=== PATIENT | male | born 1955 | race Caucasian/White ===

== ENCOUNTER 2025-06-03 09:52 | Emergency (ER) | payer MEDICARE, SELFPAY ==
[2025-06-03 10:09] VITALS: BP 130/89; PULSE 98; RESP 16; TEMP 36.9; O2SAT 96
--- NOTE | 2025-06-03 10:23 | ED.URI ---
HPI - URI/Sore Throat General Chief Complaint: Upper Respiratory Infection Stated Complaint: fariba, shortness of breath Time Seen by Provider: 06/03/25 10:15 Source: patient Mode of arrival: ambulatory Limitations: no limitations History of Present Illness HPI Narrative: Pranav is a 61-year-old male patient presenting to the clinic today with complaints of cough and shortness of breath. He reports he symptoms for at least 2-3 weeks now. Has been given prescription for prednisone and Tessalon Perles. He contacted his provider that he was not feeling better after taking those medications and they put him on Augmentin. States he is having various stages of productive cough-clear, green, and yellow. Denies any history of COPD but has asthma. Does not have an inhaler. He denies any fevers, chills, body aches. Related Data Home Medications ?Medication ?Instructions ?Recorded ?Confirmed ?Last Taken ?Type albuterol 90 mcg/actuation aerosol mcg inhalation 06/03/25 Unknown History inhaler amoxicillin 500 mg-potassium 1 tablet PO DAILY 06/03/25 06/03/25 Unknown History clavulanate 125 mg tablet (Augmentin) prednisone 20 mg tablet 20 mg PO DAILY 06/03/25 06/03/25 Unknown History Allergies Allergy/AdvReac Type Severity Reaction Status Date / Time No Known Allergies Allergy Verified 06/03/25 10:12 Review of Systems Review of Systems: Pertinent positives per HPI. Patient denies any fever, chills, rash, headache, visual changes, dizziness, chest pain, palpitations, nausea, vomiting, diarrhea, constipation, abdominal pain, or any urinary issues. PMFSH Comments At the time of my signature, I reviewed and agree with the nursing past medical, surgical, social, and family history. There is no relevant family history pertinent to the patient complaint. Exam Narrative: General: Well-developed, well nourished, acutely ill-appearing Head: Normocephalic, atraumatic Eyes: Pupils equally round and reactive to light bilaterally, EOM intact, sclera and conjunctive clear, no discharge, lids normal Ears: TMs intact and clear, ear canals clear, no drainage, grossly hearing normal. Nose: Nares patent, clear nasal discharge, moderate inflammation, maxillary sinus tenderness. Mouth: Oral pharynx red without lesions or masses, good dentition, MMM. Postnasal drip Neck: Supple, trachea midline, no enlargement of anterior or posterior cervical nodes, no thyroid masses or goiter palpable. Cardio: Regular rate and rhythm, s1 and s2 normal, no murmur appreciated. Resp: Clear to auscultation bilaterally, no rhonchi, rales, wheezing or rubs Course Course Level of Care: Express Care Visit Vital Signs Vital signs: Vital Signs Temperature 36.9 C 06/03/25 10:09 Pulse Rate 98 06/03/25 10:09 Respiratory Rate 16 06/03/25 10:09 Blood Pressure 130/89 06/03/25 10:09 Pulse Oximetry 96 06/03/25 10:09 Temperature 36.9 C 06/03/25 10:09 Pulse Rate 98 06/03/25 10:09 Respiratory Rate 16 06/03/25 10:09 Blood Pressure 130/89 06/03/25 10:09 Pulse Oximetry 96 06/03/25 10:09 MDM MDM Narrative Medical decision making narrative: At the time of visit patient is resting comfortably on the exam table. Patient appears to be nontoxic. Complaints of cough and shortness of breath. He reports he symptoms for at least 2-3 weeks now. Has been given prescription for prednisone and Tessalon Perles. He contacted his provider that he was not feeling better after taking those medications and they put him on Augmentin. States he is having various stages of productive cough-clear, green, and yellow. Denies any history of COPD but has asthma. Does not have an inhaler. He denies any fevers, chills, body aches. On exam patient has bilateral TMs intact and congested, clear nasal drainage, moderate anterior turbinate inflammation, oral pharynx red with postnasal drip, no cervical lymphadenopathy, lung sounds are clear, heart rates regular rate and rhythm Plan: I suspect patient has sinusitis/bronchitis. Prescription for another round of steroids and albuterol inhaler sent to the pharmacy. Encouraged patient to finished taking the antibiotics as prescribed. Lung sounds are clear in the clinic today. Supportive measures were discussed with the patient and they voiced understanding discharge instructions and agrees to treatment plan. Return precautions reviewed Differential Diagnosis Differential Diagnosis: Differential diagnostic considerations for upper respiratory infection include upper respiratory infection, croup, otitis media, sinusitis, viral infection, bronchitis, influenza, pharyngitis, strep, uvulitis. Discharge Plan Discharge Clinical Impression: Sinobronchitis Patient Disposition: Home Condition: Stable Instructions: Antibiotic Form, Sinusitis (ED), Acute Bronchitis (ED) Additional Instructions: Lung sounds are clear in the clinic today. Continue taking Augmentin until it is all gone. Take prescription medications only as prescribed-prednisone and albuterol inhaler Increase fluids and stay well hydrated May take Tylenol or motrin as directed on bottle for pain/fever May use Flonase 1 spray in each nare daily May take OTC antihistamines such as Zyrtec or Claritin daily as directed on bottle May apply Vicks vapor rub to chest to open sinuses Sinus rinses for congestion Cepacol spray, cough drops, throat lozenges, warm tea with honey/lemon, gargle salt water to soothe throat BRAT diet for diarrhea Clear liquids x 24 hours then advance as tolerated for nausea/vomiting Go to the ED if you develop a worsening in your condition- high fever not controlled by Tylenol or Motrin, dehydration, weakness, lethargy, shortness of breath, or chest pain. Follow up with your PCP in 3-5 days if symptoms persist. Patient Language: Spanish Prescriptions: New prednisone 50 mg tablet 50 mg PO DAILY 5 Days Qty: 5 0RF albuterol sulfate 90 mcg/actuation HFA aerosol inhaler 2 puff inhalation Q4-6H PRN (Reason: shortness of breath or wheezing) 30 Days Qty: 8.5 0RF No Action prednisone 20 mg tablet 20 mg PO DAILY Rx Instructions: days 11-21 of therapy albuterol 90 mcg/actuation aerosol inhalation amoxicillin-pot clavulanate [Augmentin] 500-125 mg tablet 1 tablet PO DAILY Follow-up/Referrals: PHYSICIAN,UROGYNAECOLOGIST [Primary Care Provider, Internal Medicine] Time of Disposition: 10:32 Quality NIHSS Nursing Documentation ED NIHSS nursing documentation: reviewed/agree
== END 2025-06-03 10:39 | disposition home or self-care (01) ==
PROVIDERS: Emergency Provider Nurse Practitioner Family
DX: J32.9 Chronic sinusitis, unspecified (principal); J40 Bronchitis, not specified as acute or chronic; J45.909 Unspecified asthma, uncomplicated
CPT/HCPCS: 99213; G0463